=== PATIENT | female | born 1935 | race Caucasian/White ===

== ENCOUNTER 2022-01-09 15:28 | Emergency (ER) | payer MEDICARE, OTHER ==
[~2022-01-09] VITALS: Ht 152.4 cm; Wt 76.4 kg
[~2022-01-09 15:28] MED LIST: AMLO-257 PO; HYDR25TA2 PO; METF-1211 PO
[2022-01-09] MEDS ORDERED: POTA-92 PO (16:50)
[2022-01-09] MEDS ORDERED: FERR325T23 PO (16:50)
[2022-01-09] MEDS ORDERED: VENL-68 PO (16:50)
[2022-01-09 20:30] VITALS: BP 135/64
== END 2022-01-09 20:54 | disposition home or self-care (01) ==
LOC: EMS 15:31
DX: S80.12XA Contusion of left lower leg, initial encounter (principal); I10 Essential (primary) hypertension; E11.9 Type 2 diabetes mellitus without complications; Z79.899 Other long term (current) drug therapy; Z79.84 Long term (current) use of oral hypoglycemic drugs
CPT/HCPCS: 93971; 99284; Z7502